=== PATIENT | male | born 1965 | race Caucasian/White ===

== ENCOUNTER 2021-07-20 18:08 | Emergency (ER) | payer SELFPAY ==
[2021-07-20 18:13] VITALS: BP 137/97; PULSE 92; RESP 18; TEMP 36.4; O2SAT 95
[2021-07-20 21:17] VITALS: BP 134/92; PULSE 78; RESP 18; TEMP 36.3; O2SAT 96
--- NOTE | 2021-07-20 21:53 | PC.NURSE ---
Pt exits ED prior to seeing provider. No sign of distress of any kind.
== END 2021-07-21 00:41 | disposition left against medical advice (07) ==
LOC: ANHED 21:56
DX: R10.9 Unspecified abdominal pain (principal)
CPT/HCPCS: 99199

== ENCOUNTER 2021-09-28 09:21 | Outpatient (CLI) | payer OTHER, SELFPAY ==
--- NOTE | ~2021-09-28 | XR_ITS ---
EXAMINATION: XR humerus LT DATE: 09/28/2021 09:42 INDICATION: Left shoulder pain. Fall. TECHNIQUE: 2 views of left humerus were obtained. COMPARISON: None. FINDINGS: Bone alignment is normal. No fracture. There is mild osteoarthritis of glenohumeral joint. There are enthesophytes at medial and lateral humeral epicondyles. IMPRESSION: 1. Mild osteoarthritis of glenohumeral joint. Reviewed, dictated and finalized at location A. GER ENT
--- NOTE | ~2021-09-28 | XR_ITS ---
EXAMINATION: XR wrist RT 2V DATE: 09/28/2021 09:42 INDICATION: Right wrist injury and pain. TECHNIQUE: 2 views of right wrist were obtained. COMPARISON: None. FINDINGS: Bone alignment is normal. No fracture. There is mild osteoarthritis of triscaphe joint, fir st carpometacarpal joint, and second metacarpophalangeal joint. IMPRESSION: 1. Mild polyarticular osteoarthritis. Reviewed, dictated and finalized at location A. GRINDER
--- NOTE | ~2021-09-28 | XR_ITS ---
EXAMINATION: XR finger 1st RT min 2V EXAM DATE: 09/28/2021 09:41 INDICATION: Fell on ice one week ago. Right 1st finger pain. TECHNIQUE: Right 1st finger frontal, lateral and oblique projections obtained and reviewed. Correlat ion is made to right wrist exam same date. FINDINGS: There are no acute fractures or dislocations identified. There is no subcutaneous gas. Th e soft tissue is unremarkable. There are no radiopaque foreign bodies. Mild osteoarthritis of the interphalangeal joint and carpometacarpal joint. IMPRESSION: 1. Right 1st finger exam without acute osseous findings. 2. Mild osteoarthritis. Reviewed, dictated and finalized at location A. ENT MANAGER
--- NOTE | ~2021-09-28 | XR_ITS ---
EXAMINATION: XR shoulder LT min 2V DATE: 09/28/2021 09:42 INDICATION: Left shoulder pain. TECHNIQUE: 4 views of left shoulder were obtained. COMPARISON: None. FINDINGS: Bone alignment is normal. No fracture. There is mild osteoarthritis of glenohumeral joint a nd acromioclavicular joint. The lung volumes are small. IMPRESSION: 1. Mild polyarticular osteoarthritis. Reviewed, dictated and finalized at location A. ONTRACT ADMINISTRATOR
== END 2021-09-28 09:22 | disposition home or self-care (01) ==
LOC: ANHBWCIMG 09:22
PROVIDERS: PCP Family Medicine; Visit Provider Family Medicine
DX: M19.041 Primary osteoarthritis, right hand (principal); M19.012 Primary osteoarthritis, left shoulder; M19.031 Primary osteoarthritis, right wrist
CPT/HCPCS: 73030; 73060; 73100; 73140

== ENCOUNTER 2021-11-09 07:53 | Outpatient (CLI) | payer OTHER, SELFPAY ==
--- NOTE | ~2021-11-09 | XR_ITS ---
EXAMINATION: XR wrist RT min 3V DATE: 11/09/2021 10:15 INDICATION: Right wrist pain post injury TECHNIQUE: Posteroanterior, ulnar deviation, oblique, and lateral views of the right wrist were obtai dewey. COMPARISON: none FINDINGS: Alignment is normal. No fracture. Mild osteoarthritis at the first carpometacarpal, metacarpophalange al and interphalangeal joints. Soft tissues are unremarkable. IMPRESSION: 1. Mild polyarticular osteoarthritis at the right thumb. No acute osseous abnormality. Reviewed, dictated and finalized at location A. IMPRESSION: 1. Mild polyarticular osteoarthritis at the right thumb. No acute osseous abnor mality.
== END 2021-11-09 07:54 | disposition home or self-care (01) ==
PROVIDERS: PCP Family Medicine; Visit Provider Family Medicine
DX: M18.11 Unilateral primary osteoarthritis of first carpometacarpal joint, right hand (principal); M25.531 Pain in right wrist
CPT/HCPCS: 73110

== ENCOUNTER 2022-05-21 16:04 | Emergency (ER) | payer OTHER, SELFPAY ==
--- NOTE | ~2022-05-21 | XR_ITS ---
XR tibia fibula RT 2V 05/21/2022 16:56 Indication: Status post fall against toilet. Maximal tibial pain with swelling. Procedure: 2 views right tibia/fibula Comparison: No prior studies for comparison. Findings: There is an age-indeterminate fracture of the fibular head proximally seen on the AP view o nly. Mild soft tissue swelling. No other fracture. Mild osteoarthritis of the knee. Impression: 1: Age-indeterminate fracture of the right fibular head. Reviewed, dictated and finalized at location B. Impression: 1: Age-indeterminate fracture of the right fibular head.
--- NOTE | ~2022-05-21 | XR_ITS ---
EXAMINATION: XR shoulder LT min 2V DATE: 05/21/2022 16:56 INDICATION: Left upper arm pain. Fall. TECHNIQUE: 4 views of left shoulder were obtained. COMPARISON: Left shoulder radiographs 09/28/2021 FINDINGS: Bone alignment is normal. No fracture. There is mild osteoarthritis of glenohumeral joint a nd acromioclavicular joint. Left lung volume is again small. IMPRESSION: 1. Mild polyarticular osteoarthritis. Reviewed, dictated and finalized at location A.
[2022-05-21 16:26] VITALS: BP 150/92; PULSE 98; RESP 16; TEMP 36.4; O2SAT 97
--- NOTE | 2022-05-21 17:24 | ED.GENADULT ---
HPI - General Adult General Chief complaint: Extremity Injury, Upper Stated complaint: Left leg and right shoulder injury Time Seen by Provider: 05/21/22 17:20 Source: patient, RN notes reviewed and old records reviewed Mode of arrival: ambulatory Limitations: no limitations History of Present Illness HPI narrative: 56 year old male who presents to [facility] care with complaints of falling when he got out of the shower on Tuesday and hit his ight knee on toilet and his left shoulder on tub.He is complaining of right proximal lower leg and knee pain with swelling and bruising. Left shoulder pain with movement. He has been taking Aleve and ice to knee and shoulder. MD complaint: left shoukder and right knee injury Onset (ago): day(s) (5) Severity scale (1-10): 3 Pain Consistency: constant Treatments prior to arrival: NSAID and cold therapy Related Data Home Medications Medication Instructions Recorded Confirmed aspirin 81 mg tablet,delayed 81 mg PO DAILY 08/13/21 05/21/22 release Allergies Allergy/AdvReac Type Severity Reaction Status Date / Time No Known Allergies Allergy Verified 05/24/22 15:10 Review of Systems Review of Systems: CONSTITUTIONAL: Denies fever, chills, or sweats. CARDIOVASCULAR: Denies chest pain, palpitations, or edema. RESPIRATORY: Denies cough or dyspnea. SKIN: Denies rash or itching. Denies laceration or abrasions MUSCULOSKELETAL: Reports pain to right knee area with bruising and swelling and also pain to left shoulder NEUROLOGIC: Denies numbness, or weakness. All systems reviewed & are unremarkable except as noted in HPI and below [facility] Past Medical History Medical History (Updated 05/27/22 @ 11:35 by Deja Gill NP) Hypertension Injury of left shoulder Surgical History Surgical History History of abdominal surgery umbilical tear 2012? History of hand surgery finger on right hand History of knee surgery right knee Family History Family History Father Asthma Diabetes mellitus Hypertension Mother Anxiety and depression Grandparent Heart disease Acute myocardial infarction Grandparent Heart disease Acute myocardial infarction Social History Social History (Updated 05/27/22 @ 11:21 by Deja L. Bridget, [employer] DE[employer]ER) Smoking status: Never smoker Alcohol intake: current Substance use: never Gender identity (if verbalized by the patient): Male Agree to blood products: Yes Comments At time of signature, agree with nursing past medical, surgical, social and family history. There is no relevant family history pertinent to the presenting complaint Exam Narrative: GENERAL: WELL-APPEARING, WELL-NOURISHED, AND IN NO ACUTE DISTRESS. HEAD: NORMOCEPHALIC, ATRAUMATIC. EYES: PERRLA AND EOMI. ENT: NARES CLEAR, NO RHINORRHEA OR EPISTAXIS. MUCOUS MEMBRANES MOIST.TMs normal with good light reflex, throat pink with no swelling NECK: SUPPLE. CHEST: CLEAR TO AUSCULTATION. NO RESPIRATORY DISTRESS. HEART: REGULAR RATE AND RHYTHM. NO MURMUR HEARD. NORMAL PERIPHERAL PULSES. ABDOMEN: SOFT, NONTENDER, NONDISTENDED, NORMAL ACTIVE BOWEL SOUNDS. EXTREMITIES: NORMAL RANGE OF MOTION. NO EDEMA.EXCEPTION NOTED TO HIS right knee with bruising, point tenderness below right knee, left shoulder pain with movement SKIN: WARM, DRY, NO RASH. NEURO: NO FOCAL DEFICITS. ALERT AND ORIENTED X3 Course Course Emergency Course: Patient is aware of diagnosis, understands and agrees to treatment plan. Anticipatory guidance given. Patient agrees to follow-up as directed and is aware of reasons to seek care at the emergency department. Portions of this record may have been created with voice recognition software Level of Care: Express Care Visit Vital Signs Vital signs: Vital Signs Temperature 36.4 C 05/21/22 16:26 Pulse Rate 98 05/21/22 16:26 Respiratory Rate 16
== END 2022-05-21 18:00 | disposition home or self-care (01) ==
PROVIDERS: Emergency Provider Registered Nurse; PCP Family Medicine
DX: S82.491A Other fracture of shaft of right fibula, initial encounter for closed fracture (principal); M25.511 Pain in right shoulder; I10 Essential (primary) hypertension; Z79.82 Long term (current) use of aspirin; X58.XXXA Exposure to other specified factors, initial encounter
CPT/HCPCS: 73030; 73590; 99214; G0463; L1830

== ENCOUNTER 2022-07-04 11:12 | Emergency (ER) | payer OTHER, SELFPAY ==
[2022-07-04 11:18] VITALS: BP 137/73; PULSE 95; RESP 18; TEMP 36.4; O2SAT 98
--- NOTE | 2022-07-04 12:34 | ED.URI ---
HPI - URI/Sore Throat General Chief Complaint: Upper Respiratory Infection Stated Complaint: Cough/Chest Congestion Time Seen by Provider: 07/04/22 12:34 Source: patient, RN notes reviewed and old records reviewed Mode of arrival: ambulatory Limitations: no limitations History of Present Illness HPI Narrative: 57 year old male presents to [facility] care with 1 week duration cough with congestion, some shortness of breath for past 2 days, fevers, nasal congestion and also scratchy throat, Patient reports that he has been taking Mucinex, NyQyil and Vitamin C for his symptoms. Patient reports that he has had COVID vaccinations. MD elicited complaint: fever, cough, sore throat, rhinorrhea and nasal congestion Pertinent past history: pneumonia Onset (ago): week(s) (1) Pain scale (0-10): 3 Related Data Allergies Allergy/AdvReac Type Severity Reaction Status Date / Time No Known Allergies Allergy Verified 07/04/22 12:18 Review of Systems Review of Systems: CONSTITUTIONAL: Reports some fever, chills, or sweats. EYES: Denies visual changes, redness, or discharge. ENT: Reports rhinorrhea, congestion, sore throat, no otalgia. CARDIOVASCULAR: Denies chest pain, palpitations, or edema. RESPIRATORY: Reports cough or dyspnea, chest tightness with cough GASTROINTESTINAL: Denies abdominal pain, nausea, vomiting, or diarrhea. GENITOURINARY: Denies dysuria or hematuria. SKIN: Denies rash or itching. MUSCULOSKELETAL: Denies back pain, joint pain, or myalgia. NEUROLOGIC: Reports headache, no numbness, or weakness. PSYCHIATRIC: Denies anxiety or depression. All systems reviewed & are unremarkable except as noted in HPI and below [facility] Past Medical History Medical History Hypertension Injury of left shoulder Surgical History Surgical History History of abdominal surgery umbilical tear 2012? History of hand surgery finger on right hand History of knee surgery right knee Family History Family History Father Asthma Diabetes mellitus Hypertension Mother Anxiety and depression Grandparent Heart disease Acute myocardial infarction Grandparent Heart disease Acute myocardial infarction Social History Social History (Updated 07/11/22 @ 20:41 by Deja Gill NP) Smoking packs per day: 1 Smoking cigarettes per day: 20.0 Years smoked: 15 Smoking pack-years: 15.00 Smoking status: Former smoker Tobacco type: cigarettes Additional smoking assessment comments: Quit 10 years ago Alcohol intake: current Substance use: never Gender identity (if verbalized by the patient): Male Agree to blood products: Yes Comments At time of signature, agree with nursing past medical, surgical, social and family history. There is no relevant family history pertinent to the presenting complaint Exam Narrative: GENERAL: Well-appearing, well-nourished, and in no acute distress. HEAD: Normocephalic, atraumatic. EYES: PERRLA and EOMI. ENT: Nares red with clear rhinorrhea no epistaxis. Mucous membranes moist.TM's normal with good light reflex, throat red with no exudates lesions or swelling, post nasal drainage. NECK: Supple. no lymphadenopathy CHEST: Coarse to auscultation. No respiratory distress.productive cough SAO2 98% on room air HEART: Regular rate and rhythm. No murmur heard. Normal peripheral pulses. ABDOMEN: Soft, nontender, nondistended, normal active bowel sounds. EXTREMITIES: Normal range of motion. No edema. SKIN: Warm, dry, no rash. NEURO: No focal deficits. Alert and oriented x3. Course Course Emergency Course: Patient is aware of diagnosis, understands and agrees to treatment plan.? Anticipatory guidance given.? Patient agrees to follow-up as directed and is aware of reasons to seek care at the emergency department. Portions of this recor
== END 2022-07-04 12:50 | disposition home or self-care (01) ==
PROVIDERS: Emergency Provider Registered Nurse; PCP Family Medicine
DX: J06.9 Acute upper respiratory infection, unspecified (principal); Z20.822 Contact with and (suspected) exposure to COVID-19; I10 Essential (primary) hypertension
CPT/HCPCS: 87426; 87804; 99213; C9803; G0463

== ENCOUNTER 2023-01-08 16:06 | Emergency (ER) | payer OTHER, SELFPAY ==
--- NOTE | 2023-01-08 16:15 | ED.BACK ---
HPI - Back Pain/Injury General Chief Complaint: Back Pain/Injury Stated Complaint: muscle spasm Time Seen by Provider: 01/08/23 16:15 Source: patient and RN notes reviewed History of Present Illness HPI Narrative: Patient is a 57-year-old male who presents to urgent care with complaints of low back spasms. Patient states he went golfing last Tuesday and believes that he may have ?from his back out?. Otherwise patient denies any recent falls, trauma or known injury to the low back. Patient states that it has been worse since Tuesday expression when he lays down at night. Patient has been taking ibuprofen and using a 10s unit/ice/heat with mild symptom relief. Patient does have a history of lower back spasms and has been treated our facility in the past. Patient is not followed up with his primary care doctor over the last week. No other acute complaints. No acute distress noted. Patient aware of plan of care. Some parts of this dictation were generated by voice recognition software and may contain typographical and/or grammatical inaccuracies. Related Data Allergies Allergy/AdvReac Type Severity Reaction Status Date / Time No Known Allergies Allergy Verified 07/04/22 12:18 Review of Systems Review of Systems: CONSTITUTIONAL: Denies fever, chills, or sweats. EYES: Denies visual changes, redness, or discharge. ENT: Denies rhinorrhea, congestion, sore throat, or otalgia. CARDIOVASCULAR: Denies chest pain, palpitations, or edema. RESPIRATORY: Denies cough or dyspnea. GASTROINTESTINAL: Denies abdominal pain, nausea, vomiting, or diarrhea. GENITOURINARY: Denies dysuria or hematuria. SKIN: Denies rash or itching. MUSCULOSKELETAL: Reports of low back pain/back spasms NEUROLOGIC: Denies headache, numbness, or weakness. All other systems reviewed are negative, except as documented in HPI. [facility] Past Medical History Medical History Hypertension Injury of left shoulder Surgical History Surgical History History of abdominal surgery umbilical tear 2012? History of hand surgery finger on right hand History of knee surgery right knee Family History Family History Father Asthma Diabetes mellitus Hypertension Mother Anxiety and depression Grandparent Heart disease Acute myocardial infarction Grandparent Heart disease Acute myocardial infarction Social History Social History (Updated 07/11/22 @ 20:41 by Deja Gill NP) Smoking packs per day: 1 Smoking cigarettes per day: 20.0 Years smoked: 15 Smoking pack-years: 15.00 Smoking status: Former smoker Tobacco type: cigarettes Additional smoking assessment comments: Quit 10 years ago Alcohol intake: current Substance use: never Gender identity (if verbalized by the patient): Male Agree to blood products: Yes Comments At the time of my signature, I reviewed and agree with the nursing past medical, surgical, social, and family history. There is no relevant family history pertinent to the patient complaint. Exam Narrative: GENERAL: This is a well-nourished, well-developed patient, in no apparent distress. HEAD: normocephalic, atraumatic. EYES: PERRL. Sclera clear/white. Vision is grossly intact. EARS: External ears normal NOSE: External nose normal with no obvious nasal discharge, nares without redness, no rhinorrhea. THROAT: Mucous membranes moist NECK: Neck supple, SKIN: warm, intact with no suspicious lesions or rash, good texture and turgor. NEURO: awake, alert, and oriented to person, place and time. There were no obvious focal neurologic abnormalities. EXTREMITIES: No clubbing, cyanosis, or edema. No joint tenderness, effusion, or edema noted. No calf tenderness. Negative Homans sign bilaterally. BACK: No lumbar tenderness. Positive right SLE
[2023-01-08 16:18] VITALS: BP 145/88; PULSE 84; RESP 16; TEMP 36.8; O2SAT 100
== END 2023-01-08 16:32 | disposition home or self-care (01) ==
PROVIDERS: Emergency Provider Nurse Practitioner Family; PCP Family Medicine
DX: M62.830 Muscle spasm of back (principal); Z87.891 Personal history of nicotine dependence; I10 Essential (primary) hypertension
CPT/HCPCS: 99213; G0463

== ENCOUNTER 2023-12-12 13:47 | Outpatient (CLI) | payer OTHER, SELFPAY ==
--- NOTE | ~2023-12-12 | XR_ITS ---
XR sacroiliac joints min 3V DATE: 12/12/2023 14:08 INDICATION: Low back pain TECHNIQUE: AP and bilateral oblique views COMPARISON: None FINDINGS: Normal alignment at the pubic symphysis and sacroiliac joints. No erosive change or ankylos is, fracture or dislocation of the sacroiliac joints. IMPRESSION: Negative sacroiliac joints Reviewed, dictated and finalized at Location A. Reviewed, dictated and finalized at location B. IMPRESSION: Negative sacroiliac joints
--- NOTE | ~2023-12-12 | XR_ITS ---
XR lumbar spine 2-3V DATE: 12/12/2023 14:08 INDICATION: Low back pain TECHNIQUE: AP, lateral, cone-down lateral lumbosacral views COMPARISON: None FINDINGS: There is degenerative change of the apophyseal joints in the mid and lower lumbar and lumbo sacral area with associated grade 1 anterolisthesis at L4-5. There is mild degenerative spurring but relative preservation of the L1-2 through L4-5 interspaces. M oderately severe degenerative disc disease is suggested L5-S1. No fracture or bone destruction. The lumbar and included lower thoracic pedicles are intact. The sacroiliac joints are normally aligned. Grade 1 anterolisthesis at L4-5 due to degenerative change at the apophyseal joints IMPRESSION: Multilevel degenerative disc disease, most prominent at L5-S1 Reviewed, dictated and finalized at location B.
== END 2023-12-12 13:48 | disposition home or self-care (01) ==
LOC: ANHBWCIMG 13:48
PROVIDERS: PCP Family Medicine; Visit Provider Family Medicine
DX: M51.37 Other intervertebral disc degeneration, lumbosacral region (principal)
CPT/HCPCS: 72100; 72202

== ENCOUNTER 2023-12-22 06:43 | Outpatient (CLI) | payer OTHER, SELFPAY ==
[2023-12-22 20:08] LABS: Hematocrit 52.5 % (42.0-52.0); Hemoglobin 17.3 g/dL (14.0-18.0); Mean Corpuscular Hemoglobin 31.4 pg (26-34); Mean Corpuscular Volume 95.3 fl (80-100); Mean Platelet Volume 9.5 fl (7.4-10.4); Platelet Count Result 285 k/mm3 (150-375); Red Blood Count 5.51 M/mm3 (4.6-6.20); Red Cell Distribution Width 13.6 % (11.5-14.5); White Blood Count 6.9 K/mm3 (4.5-10.0)
[2023-12-22 20:42] LABS: Alanine Aminotransferase 42 U/L (6-50); Albumin Level 4.2 g/dL (3.5-5.1); Alkaline Phosphatase 72 U/L (38-126); Anion Gap 3 mmol/L (4-12); Aspartate Amino Transferase 81 U/L (17-59); Blood Urea Nitrogen 18 mg/dL (9-20); Calcium 9.1 mg/dL (8.4-10.2); Carbon Dioxide 28 mmol/L (22-30); Chloride 106 mmol/L (98-107); Cholesterol 190 mg/dL (0-200); Estimated Glomerular Filt Rate > 60; Glucose 94 mg/dL (65-110); HDL Direct 47 mg/dL; Sodium 137 mmol/L (137-145); Triglycerides 245 mg/dL (<150)
[2023-12-22 20:53] LABS: LDL Cholesterol Direct 105 mg/dL
[2023-12-22 21:12] LABS: Prostate Specific Antigen 1.1 ng/mL (< OR = 4.0)
[2023-12-27 13:59] LABS: Testosterone Free 32.9 pg/mL (35.0-155.0); Testosterone Total 204 ng/dL (250-1100)
== END 2023-12-22 06:44 | disposition home or self-care (01) ==
LOC: ANHBWCLAB 06:44
PROVIDERS: PCP Family Medicine; Visit Provider Family Medicine
DX: Z00.00 Encounter for general adult medical examination without abnormal findings (principal); I10 Essential (primary) hypertension; M54.50 Low back pain, unspecified; R20.0 Anesthesia of skin; Z12.5 Encounter for screening for malignant neoplasm of prostate
CPT/HCPCS: 36415; 80053; 80061; 84153; 84402; 84403; 85027; G0103

== ENCOUNTER 2024-04-18 06:32 | Outpatient (CLI) | payer OTHER, SELFPAY ==
[2024-04-18 18:34] LABS: Hematocrit 48.7 % (42.0-52.0); Hemoglobin 16.3 g/dL (14.0-18.0); Mean Corpuscular HGB Conc 33.5 g/dl (32-36); Mean Corpuscular Hemoglobin 31.3 pg (26-34); Mean Corpuscular Volume 93.5 fl (80-100); Mean Platelet Volume 9.3 fl (7.4-10.4); Platelet Count Result 215 k/mm3 (150-375); Red Blood Count 5.21 M/mm3 (4.6-6.20); White Blood Count 5.4 K/mm3 (4.5-10.0)
[2024-04-18 19:35] LABS: Alanine Aminotransferase 271 U/L (6-50); Albumin Level 4.3 g/dL (3.5-5.1); Alkaline Phosphatase 73 U/L (38-126); Anion Gap 6 mmol/L (4-12); Aspartate Amino Transferase 643 U/L (17-59); Bilirubin,Total 1.1 mg/dL (0.2-1.3); Blood Urea Nitrogen 17 mg/dL (9-20); Calcium 9.1 mg/dL (8.4-10.2); Carbon Dioxide 26 mmol/L (22-30); Chloride 102 mmol/L (98-107); Cholesterol 181 mg/dL (0-200); Estimated Glomerular Filt Rate > 60; Glucose 104 mg/dL (65-110); HDL Direct 51 mg/dL; Potassium 4.1 mmol/L (3.4-5.0); Sodium 134 mmol/L (137-145); Triglycerides 149 mg/dL (<150)
[2024-04-18 19:48] LABS: LDL Cholesterol Direct 98 mg/dL
[2024-04-18 21:27] LABS: Hemoglobin A1C 6.2 % (<5.7)
[2024-04-25 10:33] LABS: Testosterone Free 35.6 pg/mL (35.0-155.0); Testosterone Total 172 ng/dL (250-1100)
== END 2024-04-18 06:33 | disposition home or self-care (01) ==
LOC: ANHBWCLAB 06:34
PROVIDERS: PCP Nurse Practitioner Adult Health; Visit Provider Nurse Practitioner Adult Health
DX: R79.89 Other specified abnormal findings of blood chemistry (principal); E66.9 Obesity, unspecified; R53.83 Other fatigue; I10 Essential (primary) hypertension
CPT/HCPCS: 36415; 80053; 80061; 83036; 84402; 84403; 84443; 85027

== ENCOUNTER 2024-04-25 06:32 | Outpatient (CLI) | payer OTHER, SELFPAY ==
[2024-04-25 19:37] LABS: Alanine Aminotransferase 77 U/L (6-50); Albumin Level 4.1 g/dL (3.5-5.1); Alkaline Phosphatase 68 U/L (38-126); Aspartate Amino Transferase 54 U/L (17-59); Bilirubin,Total 0.4 mg/dL (0.2-1.3)
== END 2024-04-25 06:33 | disposition home or self-care (01) ==
LOC: ANHBWCLAB 06:33
PROVIDERS: PCP Nurse Practitioner Adult Health; Visit Provider Nurse Practitioner Adult Health
DX: R74.8 Abnormal levels of other serum enzymes (principal)
CPT/HCPCS: 36415; 80076

== ENCOUNTER 2024-04-27 08:44 | Outpatient (CLI) | payer OTHER, SELFPAY ==
--- NOTE | ~2024-04-27 | US_ITS ---
Limited Abdominal Sonogram: Real-time sonographic imaging of the right upper quadrant was performed. Clinical History: Abnormal serum enzyme levels Findings: The liver appears echogenic, with no evidence of mass lesion or bile duct dilatation. Main portal vein demonstrates normal direction of flow. The gallbladder is well distended, and demonstrat es echogenic foci with shadowing, likely small stones. The common bile duct measures 2 mm. The visua lized pancreas, aorta, and IVC are unremarkable. Impression: Diffuse fatty infiltration of the liver. Cholelithiasis. Reviewed, dictated and finalized at location M. Impression: Diffuse fatty infiltration of the liver. Cholelithiasis.
== END 2024-04-27 08:45 | disposition home or self-care (01) ==
PROVIDERS: PCP Nurse Practitioner Adult Health; Visit Provider Nurse Practitioner Adult Health
DX: R74.8 Abnormal levels of other serum enzymes (principal); K80.20 Calculus of gallbladder without cholecystitis without obstruction; K76.0 Fatty (change of) liver, not elsewhere classified
CPT/HCPCS: 76705

== ENCOUNTER 2024-10-09 07:03 | Outpatient (CLI) | payer OTHER, SELFPAY ==
--- NOTE | ~2024-10-09 | XR_ITS ---
AP and lateral views of the left hip Clinical history: Pain Findings: No acute fracture or dislocation is seen. Osseous alignment is anatomic. Left hip joint spa ce is preserved, with minimal spurring at the acetabular margin. Soft tissues are unremarkable. Impression: Minimal degenerative change left hip joint. Reviewed, dictated and finalized at [facility]. Impression: Minimal degenerative change left hip joint.
--- OUTSIDE RECORDS SUMMARY | 2024-10-09 07:07 | XMS_ITS | Referral Summary ---
Author Organization [facility] Address [address] [place] [address] Care Team Providers Care Summer Babysitter Name Role Phone Hussain Hayes MD Unavailable [phone] No, Physician Primary Care Provider [phone] Allergies No known active allergies Medications aspirin 81 mg enteric coated tablet Take 81 mg by mouth daily Active cholecalciferol (VITAMIN D-3) 50,000 unit capsule Take 50,000 Units by mouth once a week Active losartan (COZAAR) 50 mg tabletIndication s:Essential hypertension Take 1 tablet (50 mg total) by mouth 2 (two) times a day 180 tablet 3 9 Active tamsulosin (FLOMAX) 0.4 mg extended release capsuleIndicatio ns:Urolithiasis Take 1 capsule (0.4 mg total) by mouth daily 30 capsule 1 Active Additional Information Patient not taking.Reported on 03/11/2022 naproxen (NAPROSYN) 500 mg tablet Take 1 tablet (500 mg total) by mouth 2 (two) times a day with meals 30 tablet 1 Active Additional Information Patient not taking.Reported on 03/11/2022 cyclobenzaprine (FLEXERIL) 10 mg tablet Take 1 tablet (10 mg total) by mouth 2 (two) times a day as needed for muscle spasms 20 tablet 1 Active Additional Information Patient not taking.Reported on 03/11/2022 triamcinolone (KENALOG) 0.1 % creamIndications :Rash of unknown cause Apply topically 3 (three) times a day for 10 days 45 g 1 2 Active Active Problems Problem Noted Date Diagnosed Date Bilateral foot pain 03/09/2019 Vitamin D deficiency 12/01/2018 Hypertriglyceridemia 12/01/2018 Other proteinuria 11/30/2018 History of asthma 11/30/2018 Gout 11/30/2018 Former smoker 11/30/2018 Overview (11/30/2018): Quit 2018 Stress at work 11/30/2018 Calculus of kidney 11/17/2016 Overview (04/10/2017): Seen on CT urogram evaluation for hematuria. Erectile dysfunction 12/24/2015 Essential hypertension 08/28/2015 Overview (10/29/2016): Hypertension Microscopic hematuria 08/28/2015 Overview (04/14/2017): Referred to Dr. Ramos, tiny left lower pole kidney stone and bladder wall thickening on CT urogram 10/28/2016, cystoscopy on 01/26/2017 unremarkable. Class 3 severe obesity due t o excess calories with serious comorbidity and body mass index (BMI) of 40.0 to 44.9 in adult 08/28/2015 Overview (10/29/2016): Obesity Assessment & Plan (11/30/2018 3:47 PM CDT): Obesity is newly identified. Discussed the patient's BMI. The BMI is above average; BMI management plan is completed. General weight loss/lifestyle modification strategies discussed (elicit support from others; identify saboteurs; non-food rewards, etc). Arthralgia of hip 02/04/2010 Chronic non-seasonal allergic rhinitis 7 Overview (05/05/2017): S/P nasal septal surgery in 2009 in [place]. Resolved Problems Problem Noted Date Diagnosed Date Resolved Date Chronic cough 03/25/2017 11/30/2018 Rash 09/22/2016 11/30/2018 Immunizations Immunization Administration Dates Next Due Influenza, Quadrivalent, Spl it, Preservative Free, Intramuscular 06/09/2015 Social History Tobacco Use Types Packs/Day Years Used Date Smoking Tobacco: Former Smokeless Tobacco: Never Comments:Smoking History Pac ks/day: 1 Packs Alcohol Use Standard Drinks/Week Comments No 0 (1 standard drink = 0.6 oz pur e alcohol) PHQ-2 Answer Date Recorded PHQ-2 Score 0 03/15/2019 Personal Safety Answer Date Recorded Getting School Help Needed Not on file 10/06 Sex and Gender Information Value Date Recorded Sex Assigned at Not on file 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 Gender Identity Not on file Sexual Orientation Not on file Last Filed Vital Signs Vital Sign Reading Time Taken Comments Blood Pressure 122/78 03/11/2022 4:21 PM CDT Pulse 91 03/11/2022 4:21 PM CDT Temperature 36.1 C (97 F) 03/11/2022 4:21 PM CDT Respiratory Rate 18 03/11/2022 4:21 PM CDT Oxygen Saturation 96% 03/11/2022 4:21 PM CDT Inhaled Oxygen Concentration - - Weight 107.5 kg (237 lb) 03/11/2022 4:21 PM CDT Height 170.2 cm (5' 7 ) 03/11/2022 4:21 PM CDT Body Mass Index 37.12 03/11/2022 4:21 PM CDT Plan of Treatment Not on file Procedures Procedure Name Priority Date/Time Associated Diagnosis Comments PSA SCREEN Routine 12/01/2018 9:25 AM CDT Prostate cancer screening COLONOSCOPY IMAGES 09/03/2016 from Last 3 Months or Most Recently Relevant to Health Maintenance Results * PSA screen (12/01/2018 9:25 AM CDT) PSA-Total 0.58 <=3.90 ng/mL REBECA ALEMAN ([place]) Comment: Interpretive Data AGE SEX REFERENCE INTERVAL 0 minutes-150 years Female None 0 minutes-49 years Male None 50-59 years Male 0-3.90 60-69 years Male 0-5.40 70-79 years Male 0-6.20 80-150 years Male 0-6.20 Current interpretive data last revised 2018. Testing performed by: [facility], [address] [place] [address], [place]., [address] Blood specimen (specimen) 12/01/2018 9:25 AM CDT 12/01/2018 1:50 PM CDT Narrative REBECA ALEMAN (BOWIE) - 12/01/2018 2:17 PM CDT us Palak Egan NP LAB BLOOD ORDERABLES Final Resu lt REBECA ALEMAN (BOWIE) 1 [facility] Department [place] [address] * COLONOSCOPY IMAGES (09/03/2016) Anatomical Region Laterality Modality Other Narrative 09/03/2016 Ordered by an unspecified provider. Historical Provider GI PROCEDURE ORDERABLES F inal Result from Last 3 Months or Most Recently Relevant to Health Maintenance Insurance [facility] OPEN ACCESS [facility] CHOICE PLUS [employer]IG[employer] OPEN ACCESS [facility] CHOICE PLUS Care Teams Summer Babysitter Relationship Specialty Start Date End Date No, Physician PCP - General 07/22/21 [place] [id number] [address] Consulting Physician Nephrology 07/22/18
--- OUTSIDE RECORDS SUMMARY | 2024-10-09 07:07 | XMS_ITS | Encounter Summary ---
Author Organization [facility] Address [address] [place] [address] Phone Care Team Providers Care Administrator Health Care Facility Name Role Phone Stewart Walker MD Primary Care Provider [phone] Hussain Hayes MD Unavailable [phone] Hussain Hayes MD Unavailable [phone] Palak Egan NP Primary Care Provider [phone] No, Physician Primary Care Provider [phone] Encounter Details Date Type Department Care Team (Late st Contact Info) Description 04/27/2017 Orders Only [facility] [address] [place] [address] Stewart Walker MD [address] [place], [place] [address], [place] [id number] Social History Tobacco Use Types Packs/Day Years Used Date Smoking Tobacco: Former Smokeless Tobacco: Never Comments:Smoking History Pac ks/day: 1 Packs Alcohol Use Standard Drinks/Week Comments No 0 (1 standard drink = 0.6 oz pur e alcohol) Sex and Gender Information Value Date Recorded Sex Assigned at Not on file 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 Gender Identity Not on file Sexual Orientation Not on file documented as of this encounter Plan of Treatment Not on file documented as of this encounter Procedures Procedure Name Priority Date/Time Associated Diagnosis Comments SCAN - LABS 04/27/2017 9:20 AM CDT documented in this encounter Results * SCAN - LABS (04/27/2017 9:20 AM CDT) Stewart Walker MD Final Result documented in this encounter Visit Diagnoses Not on filedocumented in this encounter Care Teams Administrator Health Care Facility Relationship Specialty Start Date End Date Stewart Walker MD [address] [place] [address] PCP - General Infectious Diseases 01/07/17 11/29/18 Palak Egan NP [address] [facility] [address] [place] [address] PCP - General Family Medicine 11/30/18 07/21/21 No, Physician PCP - General 07/22/21 [place] [address] [address] Consulting Physician Nephrology 07/22/18 [place] [address] [address] Consulting Physician Nephrology 11/30/18 11/30/18 documented as of this encounter
--- OUTSIDE RECORDS SUMMARY | 2024-10-09 07:07 | XMS_ITS | Patient Health Record ---
Author Organization [facility] Address [address] [place] [address] [place] [id number] Care Team Providers Care Television News Photographer Name Role Phone Stewart Walker Primary Care Provider Hussain Negrete Unavailable [phone] Reason For Referral No Information Medications Medication SIG (Take, Route, Frequency, Duration) Notes Start Date End Date Status Losartan Potassium 50 MG 1 tablet Orally Twice a Day for 90 days 04/21/2018 Active Social History Tobacco Use: Social History Observation Description Date Details (start date - stop date) Former Smoker NA - NA Alcohol: Question Answer Notes Did you have a drink contain ing alcohol in the past year? Yes How often did you have a dri nk containing alcohol in the past year? Monthly or less (1 point) How many drinks did you have on a typical day when you were drinking in the past year? 1 or 2 (0 points) How often did you have six o r more drinks on one occasion in the past year? Never (0 points) Points 1 Interpretation Negative Smoking Question Answer Notes Are you a: former smoker Additional Findings: Tobacco Non-User Aggressive non-smoker Problems Problem Type SNOMED Code ICD Code Onset Dates Problem Status W/U Status Risk Notes Problem Proteinuria (03903806) Proteinuria (R80.9) Active confirmed resolved. Continue losartan. Problem Hypertension (14336921) Hypertension (I10) Active confirmed BP stable Problem Hyperlipidemia (81464546) Hyperlipidemia (E78.5) Active confirmed Problem Hematuria (84746928) Hematuria (R31.9) Active confirmed Urinalysis still shows a trace of hematuria Problem Obesity (634144324) Obesity (E66.9) Active confirmed pt has l ost 27 lbs. Problem Screening for malignant neoplasm of prostate (731342593) Encounter for screening for malignant neoplasm of prostate (Z12.5) Active confirmed Plan Of Treatment Pending Test Test Name Order Date Ultrasound : Kidneys, bilate ral and urinary bladder with post void residual 01/27/2018 Comp. Metabolic Panel (14) 04/09/2020 PSA Total (Reflex To Free) 04/09/2020 random urine protein to creatinine ratio 11/07/2018 PSA, Ultrasensitive W/O Serial 9 CBC With Differential/Platelet 9 Urine Culture, Routine 11/07/2018 Lipid Panel 11/07/2018 Comp. Metabolic Panel (14) 11/07/2018 Urinalysis, Routine 11/07/2018 Prot+CreatU (Random) 04/09/2020 Lipid Panel 04/09/2020 CBC With Auto Diff 04/09/2020 Urinalysis Reflex to Culture 04/09/2020 Insurance Providers Payer Name Payer Address Payer Phone Subscriber Number Group Number Insured Name Patient Relationship to Insured Coverage Start Date Coverage End Date [employer] [address] [place], [place] [id number] Mitesh Shrestha Self - patient is the insured Medical (General) History Medical History History ICD Code poor anesthesia tolerance htn proteinuria nephroloithiasis gout hematuria
--- OUTSIDE RECORDS SUMMARY | 2024-10-09 07:07 | XMS_ITS | Clinical Summary ---
Author Organization [facility] Address 1 [place] [address] Care Team Providers Care Internal Wholesaler Name Role Phone Hussain Hayes MD Unavailable [phone] No, Physician Primary Care Provider [phone] Allergies No known active allergies Medications aspirin [...] S/P nasal septal surgery in 2009 in [place]. Resolved Problems Problem Noted Date Diagnosed Date Resolved Date Chronic cough 03/25/2017 11/30/2018 Rash 09/22/2016 11/30/2018 Immunizations Immunization Administration Dates Next Due Influenza, Quadrivalent, Spl it, Preservative Free, Intramuscular 06/09/2015 Surgical History Surgery Date Site/Laterality Comments HERNIA REPAIR Hernia repair CYSTOSCOPY 01/26/2017 Done for hematuria. No significant finding. Hematuria attributed to small stones. FINGER SURGERY REpair right ring finger cut off NASAL SEPTUM SURGERY 07/25/2009 - 07/24/2010 Nasal septum repair, [place]. 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 Gender Identity Not on file Sexual Orientation Not on file Obstetrics History Last Filed Vital Signs Vital Sign Reading [...] 03/11/2022 4:21 PM CDT Plan of Treatment Health Maintenance Due Date Last Done Comments Hepatitis C Screening 1967 DTaP/Tdap/Td Vaccine (1 - Tdap) 1978 Hepatitis B Screening 1985 Regular Well Visit/Exam 18-64 1985 Zoster Vaccine (1 of 2) 2017 Depression Screening 12/01/2019 11/30/2018 Prostate Cancer Screening-PSA 12/01/2020 12/01/2018 Covid-19 Vaccine ( season) 2024 05/28/2021, 10/07/2020, 09/09/2020 Influenza Vaccine (#1) 2024 06/09/2015 Colon Cancer Screening-Colonoscopy 09/03/2026 09/03/2016, 09/03/2016 Colon Cancer Screening-CT Colonography Discontinued 09/03/2016, 09/03/2016 Colon Cancer Screening-DNA Stool Discontinued 09/03/2016, 09/03/2016 Colon Cancer Screening-FIT Discontinued 09/03, 09/03/2016 Colon Cancer Screening-Sigmoidoscopy Discontinued 09/03/2016, 09/03/2016 Pneumococcal vaccine <65 Aged Out No longer eligible based on patient's age to complete this topic Procedures Procedure Name Priority Date/Time Associated Diagnosis [...] data last revised 2018. Testing performed by: [facility], [address] [place] [address], [place]., [address] Blood specimen (specimen) 12/01/2018 9:25 AM CDT 12/01/2018 1:50 PM CDT Narrative REBECA ALEMAN (MALENA) - 12/01/2018 2:17 PM CDT us Palak Egan NP LAB BLOOD ORDERABLES Final Resu lt REBE[facility]LE[facility] ([facility]) 1 [facility] Department [place] [address] * COLONOSCOPY IMAGES (09/03/2016) Anatomical Region Laterality Modality Other Narrative 09/03/2016 Ordered by an unspecified provider. us Historical Provider GI PROCEDURE ORDERABLES F inal Result from Last 3 Months or Most Recently Relevant to Health Maintenance Insurance [facility] H[facility]/PPO Address: [address] [address] [place] [address] [employer] OPEN ACCESS [facility] CHOICE PLUS [facility] HMO/PPO Address: [address] [address] [place] [address] [employer] OPEN ACCESS [facility] CHOICE PLUS [facility] HMO/PPO Address: [address] [address] [place] [address] Care Teams Internal Wholesaler Relationship Specialty Start Date End Date No, Physician PCP - General 07/22/21 [place] [address] [place] [address] Consulting Physician Nephrology 07/22/18
== END 2024-10-09 07:04 | disposition home or self-care (01) ==
LOC: ANHBWCIMG 07:04
PROVIDERS: PCP Nurse Practitioner Adult Health; Visit Provider Nurse Practitioner Adult Health
DX: M16.12 Unilateral primary osteoarthritis, left hip (principal)
CPT/HCPCS: 73502

== ENCOUNTER 2024-10-11 14:04 | Outpatient (CLI) | payer OTHER, SELFPAY ==
--- NOTE | ~2024-10-11 | XR_ITS ---
3 VIEWS LUMBAR SPINE Ordering provider: Lizette Andrea APRN History: . Pain in lower back radiating to left upper leg . Comparison: None. FINDINGS: VERTEBRAL BODIES: No visible fracture or subluxation. Degenerative changes of the spine. Loss of heig ht of T11 and T12 most likely chronic is noted. DISK SPACES: Narrowing of the disc L5-S1. Facet joint disease at the level of L4-L5 and L5-S1. SOFT TISSUES: Normal. IMPRESSION: No acute osseous abnormality lumbar spine. Degenerative disc disease at the level of L5-S1. Reviewed, dictated and finalized at location A.
--- NOTE | ~2024-10-11 | XR_ITS ---
XR sacroiliac joints min 3V Ordering provider: Lizette Andrea APRN History: . M54.10 - Radiculopathy, site unspecified . Comparison: None. FINDINGS: BONES: No acute fracture or dislocation. JOINTS: The bilateral sacroiliac joint spaces appear well maintained. No bony fusion of the sacroilia c joints or bony erosions. SOFT TISSUES: Unremarkable. IMPRESSION: NO ACUTE OSSEOUS ABNORMALITY. NORMAL SACROILIAC JOINTS. Reviewed, dictated and finalized at location A.
--- OUTSIDE RECORDS SUMMARY | 2024-10-11 14:34 | XMS_ITS | Referral Summary ---
Author Organization [facility] Address 1 [place] [address] Care Team Providers Care Housekeeping Room Inspector Name Role Phone Hussain Hayes MD Unavailable [phone] No, Physician Primary Care Provider [phone] Allergies No known active allergies Medications aspirin [...] S/P nasal septal surgery in 2009 in [place]. 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 Testing performed by: [facility], [address] [place] [address], [place]., [address] Blood specimen (specimen) 12/01/2018 9:25 AM CDT 12/01/2018 1:50 PM CDT Narrative REBECA ALEMAN (ELIZABETH) - 12/01/2018 2:17 PM CDT us Palak Egan NP LAB BLOOD ORDERABLES Final Resu lt REBECA ALEMAN (ELIZABETH) 1 [facility] Department [place] [address] * COLONOSCOPY IMAGES (09/03/2016) Anatomical Region Laterality Modality Other Narrative 09/03/2016 Ordered by an unspecified provider. Historical Provider GI PROCEDURE ORDERABLES F inal Result from Last 3 Months or Most Recently Relevant to Health Maintenance Insurance [facility] OPEN ACCESS [facility] CHOICE PLUS CIGNA OPEN ACCESS [facility] CHOICE PLUS Care Teams Housekeeping Room Inspector Relationship Specialty Start Date End Date No, Physician PCP - General 07/22/21 [place] [id number] [address] Consulting Physician Nephrology 07/22/18
--- OUTSIDE RECORDS SUMMARY | 2024-10-11 14:34 | XMS_ITS | Encounter Summary ---
Author Organization [facility] Address [address] [place] [address] Phone Care Team Providers Care Hand Woodworking Sander Name Role Phone Stewart Walker MD Primary Care Provider [phone] Hussain Hayes MD Unavailable [phone] Hussain Hayes MD Unavailable [phone] Palak Egan NP Primary Care Provider [phone] No, Physician Primary Care Provider [phone] Encounter Details Date Type Department Care Team (Late st Contact Info) Description 04/27/2017 Orders Only [facility] [address] [place] [address] Stewart Walker MD [address] [place], [place] [address], [place] [id number] Social History Tobacco Use Types Packs/Day Years Used Date Smoking Tobacco: Former Smokeless Tobacco: Never Comments:Smoking History Pac ks/day: 1 Packs Alcohol Use Standard Drinks/Week Comments No 0 (1 standard drink = 0.6 oz pur e alcohol) Sex and Gender Information Value Date Recorded Sex Assigned at Not on file 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 [address] [place] [address] PCP - General Family Medicine 11/30/18 07/21/21 No, Physician PCP - General 07/22/21 [place] [address] [address] Consulting Physician Nephrology 07/22/18 [place] [address] [address] [address] Consulting Physician Nephrology 11/30/18 11/30/18 documented as of this encounter
--- OUTSIDE RECORDS SUMMARY | 2024-10-11 14:34 | XMS_ITS | Clinical Summary ---
Author Organization [facility] Address 1 [place] [address] Care Team Providers Care Tanyard Worker Name Role Phone Hussain Hayes MD Unavailable [phone] No, Physician Primary Care Provider [phone] Allergies No known active allergies Medications aspirin [...] S/P nasal septal surgery in 2009 in [place]. Resolved Problems Problem Noted Date Diagnosed Date [...] SURGERY 07/25/2009 - 07/24/2010 Nasal septum repair, [place]. 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 Testing performed by: [facility], [address] [place] [address], [place]., [address] Blood specimen (specimen) 12/01/2018 9:25 AM CDT 12/01/2018 1:50 PM CDT Narrative REBECA ALEMAN ([place]) - 12/01/2018 2:17 PM CDT us Palak Egan NP LAB BLOOD ORDERABLES Final Resu lt REBECA ALEMAN ([place]) 1 [facility] Department [place] [address] * COLONOSCOPY IMAGES (09/03/2016) Anatomical Region Laterality Modality Other Narrative 09/03/2016 Ordered by an unspecified provider. us Historical Provider GI PROCEDURE ORDERABLES F inal Result from Last 3 Months or Most Recently Relevant to Health Maintenance Insurance [facility] [employer] OPEN ACCESS [facility] CHOICE PLUS CIGNA OPEN ACCESS [facility] CHOICE PLUS Care Teams Tanyard Worker Relationship Specialty Start Date End Date No, Physician PCP - General 07/22/21 [place] [address] [place] [address] Consulting Physician Nephrology 07/22/18
== END 2024-10-11 14:05 | disposition home or self-care (01) ==
LOC: ANHBWCLAB 14:05 → ANHBWCIMG 14:09
PROVIDERS: PCP Nurse Practitioner Adult Health; Visit Provider Nurse Practitioner Adult Health
DX: M54.10 Radiculopathy, site unspecified (principal); M51.379 Other intervertebral disc degeneration, lumbosacral region without mention of lumbar back pain or lower extremity pain
CPT/HCPCS: 72100; 72202

== ENCOUNTER 2025-06-24 11:17 | Outpatient (CLI) | payer OTHER, SELFPAY ==
--- NOTE | ~2025-06-24 | XR_ITS ---
EXAMINATION: [id number], 06/24/2025 11:20 SEED BUYER HISTORY: rt posterior heel pain x 3 weeks COMPARISON: No comparisons available. Findings: Remote fracture of the fifth metatarsal. No acute fracture is identified. Large calcaneal spur. Moderate Achilles enthesopathy. Soft tissues unremarkable. Impression: No acute fracture or malalignment. Reviewed, dictated and finalized at location P. BUYER Impression: No acute fracture or malalignment.
--- OUTSIDE RECORDS SUMMARY | 2025-06-24 12:56 | XMS_ITS | Clinical Summary ---
Author Organization [facility] Address 1 [place] [address] Care Team Providers Care Unhairing Inspector Name Role Phone Hussain Hayes MD Unavailable [phone] No, Physician Primary Care Provider Allergies No known active allergies Medications aspirin [...] S/P nasal septal surgery in 2009 in [place]. Resolved Problems Problem Noted Date Diagnosed Date [...] SURGERY 07/25/2009 - 07/24/2010 Nasal septum repair, [place]. 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
--- OUTSIDE RECORDS SUMMARY | 2025-06-24 12:56 | XMS_ITS | Encounter Summary ---
Author Organization [facility] Address [address] [place] [address] Phone Care Team Providers Care Alarm Adjuster Name Role Phone Stewart Walker MD Primary Care Provider [phone] Hussain Hayes MD Unavailable [phone] Hussain Hayes MD Unavailable [phone] Palak Egan NP Primary Care Provider [phone] No, Physician Primary Care Provider [phone] Encounter Details Date Type Department Care Team (Late st Contact Info) Description 04/27/2017 Orders Only [facility] [address] [place] [address] Stewart Walker MD [address] [place], [place] [address], [place] [address] Social History Tobacco Use Types Packs/Day Years Used Date Smoking Tobacco: Former Smokeless Tobacco: Never Comments:Smoking History Pac ks/day: 1 Packs Alcohol Use Standard Drinks/Week Comments No 0 (1 standard drink = 0.6 oz pur e alcohol) Sex and Gender Information Value Date Recorded Sex Assigned at Not on file 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 Gender Identity Not on file Sexual [...] on filedocumented in this encounter Care Teams Alarm Adjuster Relationship Specialty Start Date End Date Stewart Walker MD [address] [place] [address] PCP - General Infectious Diseases 01/07/17 11/29/18 Palak Egan NP [address] [facility] [address] [place] [address] PCP - General Family Medicine 11/30/18 07/21/21 No, Physician PCP - General 07/22/21 [place] [address] [address] Consulting Physician Nephrology 07/22/18 [place] [address] [address] Consulting Physician Nephrology 11/30/18 11/30/18 documented as of this encounter
== END 2025-06-24 11:18 | disposition home or self-care (01) ==
LOC: ANHBWCIMG 11:19
PROVIDERS: PCP Nurse Practitioner Adult Health; Visit Provider Nurse Practitioner Adult Health
DX: M79.671 Pain in right foot (principal)
CPT/HCPCS: 73630